=== PATIENT | female | born 1990 | race Caucasian/White ===

== ENCOUNTER 2016-07-18 02:57 | Emergency (ER) | payer OTHER ==
[~2016-07-18] VITALS: Ht 165.1 cm; Wt 104.0 kg
[~2016-07-18 02:57] MED LIST: BCP; FOLIC ACID1 MG PO; MULTIVITAMINS1 EA11 PO; PRENATAL VITAM1 EAC7 PO
[2016-07-18] MEDS ORDERED: FOLIC ACID1 MG PO (03:56)
[2016-07-18 04:08] LABS: INFLUENZA A VIRAL ANTIGEN NEGATIVE; INFLUENZA B VIRAL ANTIGEN NEGATIVE
[2016-07-18] MEDS ORDERED: AMOXICILLIN500 M1 PO (04:27)
[2016-07-18] MEDS ORDERED: PROAIR HFA8.5 GM IH (04:27)
[2016-07-18 04:31] VITALS: BP 125/77
== END 2016-07-18 04:35 | disposition home or self-care (01) ==
LOC: EME 02:57
PROVIDERS: Emergency Medicine
DX: O99.512 Diseases of the respiratory system complicating pregnancy, second trimester (principal); J01.90 Acute sinusitis, unspecified; J02.9 Acute pharyngitis, unspecified; F17.200 Nicotine dependence, unspecified, uncomplicated; Z3A.20 20 weeks gestation of pregnancy; Z91.040 Latex allergy status; Z71.6 Tobacco abuse counseling
CPT/HCPCS: 87502; 87651 90; 94640; 99281; 99284

== ENCOUNTER 2016-08-17 22:46 | Emergency (ER) | payer OTHER ==
[~2016-08-17] VITALS: Ht 165.1 cm; Wt 104.7 kg
[~2016-08-17 22:46] MED LIST changes: +AMOXICILLIN500 M1 PO; +PROAIR HFA8.5 GM IH
[2016-08-17] MEDS ORDERED: TAMIFLU30 MG PO (22:55)
[2016-08-17 23:12] VITALS: BP 132/71
== END 2016-08-17 23:16 | disposition home or self-care (01) ==
LOC: EME 22:46 → EXP 22:46
DX: Z20.89 Contact with and (suspected) exposure to other communicable diseases (principal)
CPT/HCPCS: 99281; 99283

== ENCOUNTER → 2016-09-04 | Outpatient (CLI) | payer OTHER ==
[~2016-09-04] VITALS: Ht 162.6 cm; Wt 105.0 kg
[~2016-09-04] MED LIST changes: +TAMIFLU30 MG PO
[2016-09-04 14:30] VITALS: BP 120/56
== END | disposition home or self-care (01) ==
LOC: IVINF 13:53
DX: O36.0990 Maternal care for other rhesus isoimmunization, unspecified trimester, not applicable or unspecified (principal); Z3A.00 Weeks of gestation of pregnancy not specified
CPT/HCPCS: 96372; J2790

== ENCOUNTER 2016-12-05 06:44 | Inpatient (IN) | payer OTHER ==
[2016-12-05] VITALS (13 sets, daily range): BP systolic 126–152; BP diastolic 58–93
[~2016-12-05] VITALS: Ht 165.1 cm; Wt 105.6 kg
[2016-12-05 10:31] LABS: EOSINOPHIL (%) 0 % (0-5); HEMATOCRIT 29.8 % (36.0-46.0); IMMATURE GRANULOCYTE (%) 0.7 % (0.0-0.7); IMMATURE GRANULOCYTE COUNT 0.2 K/uL; INSTRUMENT ABS NEUTROPHIL CT 20.1 K/uL; LYMPHOCYTE COUNT 1.5 K/uL (1.0-2.8); MCHC 33.2 G/DL (30.0-36.0); MCV 81.4 FL (83-99); MEAN PLAT.VOLUME 10.1 uM^3 (9.5-12.4); MONOCYTE (%) 3.5 % (3-12); MONOCYTE COUNT 0.8 K/uL (0-0.8); NEUTROPHIL (%) 89.1 % (45-76); NEUTROPHIL COUNT 20.1 K/uL (1.8-6.4); PLATELET COUNT 320 K/uL (156-360); RBC DIS.WIDTH-CV 14.5 % (11.8-14.6); RBC DIS.WIDTH-SD 42.8 % (39-53); RED BLOOD COUNT 3.66 M/uL (3.80-5.20); WHITE BLOOD COUNT 22.5 K/uL (4.1-10.2)
[2016-12-06] VITALS: BP 138/88
[2016-12-06 07:07] LABS: EOSINOPHIL (%) 0.9 % (0-5); EOSINOPHIL COUNT 0.1 K/uL (0-0.3); HEMATOCRIT 28.8 % (36.0-46.0); IMMATURE GRANULOCYTE (%) 0.5 % (0.0-0.7); IMMATURE GRANULOCYTE COUNT 0.1 K/uL; INSTRUMENT ABS NEUTROPHIL CT 8.9 K/uL; LYMPHOCYTE COUNT 3.3 K/uL (1.0-2.8); MCH 25.6 PG (29.0-34.0); MCHC 31.3 G/DL (30.0-36.0); MCV 81.8 FL (83-99); MEAN PLAT.VOLUME 10.1 uM^3 (9.5-12.4); MONOCYTE (%) 5.4 % (3-12); MONOCYTE COUNT 0.7 K/uL (0-0.8); NEUTROPHIL (%) 67.9 % (45-76); NEUTROPHIL COUNT 8.9 K/uL (1.8-6.4); PLATELET COUNT 329 K/uL (156-360); RBC DIS.WIDTH-CV 14.3 % (11.8-14.6); RBC DIS.WIDTH-SD 42.1 % (39-53); RED BLOOD COUNT 3.52 M/uL (3.80-5.20); WHITE BLOOD COUNT 13.1 K/uL (4.1-10.2)
[2016-12-06 07:20] VITALS: BP 127/59
[2016-12-06 15:27] VITALS: BP 135/86
[2016-12-06 23:35] VITALS: BP 134/74
[2016-12-07 08:13] VITALS: BP 130/77
[2016-12-07] MEDS ORDERED: IBUPROFEN800 MG PO (09:37)
[2016-12-07 14:01] VITALS: BP 129/66
== END 2016-12-07 15:05 | disposition home or self-care (01) | DRG 775 ==
LOC: LDRP-OP → 2WEST 06:45 → LDRP-OP 12-31 15:26
PROVIDERS: Advanced Practice Midwife
PROC: 10E0XZZ Delivery of Products of Conception, External Approach (ICD-10-PCS; principal; 2016-12-05)
DX: O99.214 Obesity complicating childbirth (principal); D62 Acute posthemorrhagic anemia; Z68.30 Body mass index [BMI] 30.0-30.9, adult; E66.9 Obesity, unspecified; O99.02 Anemia complicating childbirth; D50.9 Iron deficiency anemia, unspecified; Z37.0 Single live birth; Z3A.40 40 weeks gestation of pregnancy
CPT/HCPCS: 85025; J2590

== ENCOUNTER 2017-02-03 07:39 | Day surgery (SDC) | payer OTHER ==
[~2017-02-03] VITALS: Ht 165.1 cm; Wt 97.1 kg
[~2017-02-03 07:39] MED LIST changes: +IBUPROFEN800 MG PO
[2017-02-03 07:57] VITALS: BP 111/75
[2017-02-03] MEDS ORDERED: PERCOCET 5/31 TABLET PO (10:23)
[2017-02-03 11:30] VITALS: BP 135/62
[2017-02-03 12:11] VITALS: BP 128/77
== END 2017-02-03 12:13 | disposition home or self-care (01) ==
LOC: SDC
PROC: 0UL78DZ Occlusion of Bilateral Fallopian Tubes with Intraluminal Device, Via Natural or Artificial Opening Endoscopic (ICD-10-PCS; principal; 2017-02-03)
DX: Z30.2 Encounter for sterilization (principal); Z82.49 Family history of ischemic heart disease and other diseases of the circulatory system; F17.210 Nicotine dependence, cigarettes, uncomplicated
CPT/HCPCS: J0690; J1100; J1170; J1885; J2250; J2405; J3010

== ENCOUNTER 2017-12-01 01:46 | Emergency (ER) | payer OTHER ==
[~2017-12-01] VITALS: Ht 165.1 cm; Wt 111.4 kg
[~2017-12-01 01:46] MED LIST changes: +PERCOCET 5/31 TABLET PO
[2017-12-01 02:11] LABS: APPEARANCE SL.HAZY ((CLEAR)); BILIRUBIN NEGATIVE; BLOOD LARGE; COLOR YELLOW ((YELLOW)); GLUCOSE (STRIP) NEGATIVE; KETONES NEGATIVE; LEUKOCYTES LARGE; NITRITE NEGATIVE; PROTEIN (STRIP) 30; SPECIFIC GRAVITY 1.019 (1.000-1.030); UROBILINOGEN 0.2 MG/DL (0.2-1.0)
[2017-12-01 02:16] LABS: BACTERIA RARE /HPF; EPITHELIAL CELLS 2+ /HPF; MUCUS TRACE /LPF; RED BLOOD CELLS TNTC /HPF (0-5); UCUL ADDED? YES; WHITE BLOOD CELLS TNTC /HPF (0-5)
[2017-12-01 02:31] LABS: HEMATOCRIT 41.8 % (36.0-46.0); HEMOGLOBIN 13.8 G/DL (11.9-15.5); MCH 27.2 PG (29.0-34.0); MCV 82.3 FL (83-99); PLATELET COUNT 272 K/uL (156-360); RBC DIS.WIDTH-CV 13.3 % (11.8-14.6); RBC DIS.WIDTH-SD 39.8 % (39-53); RED BLOOD COUNT 5.08 M/uL (3.80-5.20); WHITE BLOOD COUNT 11.5 K/uL (4.1-10.2)
[2017-12-01 02:43] LABS: CHLORIDE 106 mEq/L (99-109); POTASSIUM 3.7 mEq/L (3.7-5.4); SODIUM 141 mEq/L (136-147)
[2017-12-01 02:45] LABS: GLUCOSE 103 mg/dL (70-99); TOTAL PROTEIN 6.6 g/dL (6.4-8.3)
[2017-12-01 02:47] LABS: TOTAL BILIRUBIN 0.3 mg/dL (0.0-1.0)
[2017-12-01 02:48] LABS: ALKALINE PHOSPHATASE 67 IU/L (3-129)
[2017-12-01 02:49] LABS: CREATININE 0.8 mg/dL (0.6-1.3); GFR ESTIMATE (CALCULATED) > 59 mL/min/
[2017-12-01 02:50] LABS: AST (GOT) 19 IU/L (2-34); UREA NITROGEN (BUN) 12 mg/dL (9-23)
[2017-12-01 02:51] LABS: ALT (GPT) 28 IU/L (3-49)
[2017-12-01 02:58] LABS: QUANTITATIVE HCG < 4.0 MIU/ML
[2017-12-01] MEDS ORDERED: KEFLEX500 MG PO (03:11)
[2017-12-01] MEDS ORDERED: PYRIDIUM200 MG PO (03:11)
[2017-12-01 03:18] VITALS: BP 117/79
[2017-12-01] MEDS ORDERED: VENTOLIN HFA18 GM IH (03:19)
== END 2017-12-01 03:20 | disposition home or self-care (01) ==
LOC: EME 01:46
DX: N39.0 Urinary tract infection, site not specified (principal); B96.20 Unspecified Escherichia coli [E. coli] as the cause of diseases classified elsewhere; F17.200 Nicotine dependence, unspecified, uncomplicated; Z91.040 Latex allergy status; Z91.018 Allergy to other foods
CPT/HCPCS: 80053; 81003; 84702; 85027; 87077; 87086; 87186; 99281; 99283